=== PATIENT | male | born 1985 | race Hispanic/Latino ===

== ENCOUNTER 2017-12-24 16:19 | Emergency (ER) | payer BC ==
[2017-12-24] MEDS ORDERED: ORPHENADRINE CITRATE 30 MG/ML ML ONE (17:20)
[2017-12-24] MEDS ORDERED: KETOROLAC TROMETHAMINE 60 MG/2 ML VIAL ONE (17:21)
== END 2017-12-24 17:45 | disposition home or self-care (01) ==
LOC: EDH 16:19
DX: M62.830 Muscle spasm of back (principal); Z88.8 Allergy status to other drugs, medicaments and biological substances; Z90.49 Acquired absence of other specified parts of digestive tract
CPT/HCPCS: 71045; 96372 ×2; 99284; J1885; J2360